=== PATIENT | male | born 1995 | race Caucasian/White ===

== ENCOUNTER 2024-03-05 08:53 | Inpatient (IN) | payer MEDICAID, OTHER ==
[2024-03-05] VITALS (22 sets, daily range): BP systolic 142–183; BP diastolic 88–116; TEMP 98.4–98.6; O2SAT 92–97
[~2024-03-05] VITALS: Ht 188 cm; Wt 107.0 kg
[2024-03-05] MEDS: ONDANSETRON HCL/PF - ER 4 MG/2 ML VIAL IV ONE (09:30)
[2024-03-05] MEDS: PANTOPRAZOLE 80 MG in IV NS 0.9% 100 ML IV ONE (09:30)
[2024-03-05] MEDS ORDERED: ONDANSETRON HCL/PF 4 MG/2 ML VIAL ONE (09:34)
[2024-03-05] MEDS ORDERED: LORAZEPAM INJ 2 MG/ML VIAL ONE (09:35)
[2024-03-05 09:39] LABS: BASOPHILS % (AUTO) 0.4 % (0.0-2.0); EOSINOPHILS % (AUTO) 0.1 % (0.0-6.0); HEMATOCRIT 51 % (39-51); LYMPHOCYTES # (AUTO) 0.6 K/uL (0.8-4.8); LYMPHOCYTES % (AUTO) 6.6 % (20.0-44.0); MEAN CORPUSCULAR HEMOGLOBIN 36 PG (26.0-33.0); MEAN CORPUSCULAR HGB CONC 34 g/dl (31.0-36.0); MEAN CORPUSCULAR VOLUME 107 fL (80-96); MONOCYTES # (AUTO) 0.5 K/uL (0.1-1.30); MONOCYTES % (AUTO) 5.6 % (2.0-12.0); NEUTROPHILS # (AUTO) 7.4 K/uL (1.8-8.9); NEUTROPHILS % (AUTO) 87.3 % (43.0-81.0); PLATELET COUNT (AUTO) 127 K/uL (150-450); RED BLOOD CELL COUNT(AUTO) 4.76 MIL/uL (4.5-6.0); RED CELL DISTRIBUTION WIDTH 15.4 % (11.5-15.0); WHITE BLOOD COUNT (AUTO) 8.5 K/uL (4.3-11.0)
[2024-03-05] MEDS: IV NS 0.9% 1,000 ML BAG IV ONE (09:42)
[2024-03-05] MEDS: LORAZEPAM INJ 2 MG/ML VIAL IV ONE ×2 (09:43→11:21)
[2024-03-05] MEDS ORDERED: PANT40TA49 PO (09:44)
[2024-03-05] MEDS ORDERED: LEVE500T20 PO (09:44)
[2024-03-05] MEDS ORDERED: ONDA4TAB11 PO (09:44)
[2024-03-05] MEDS: OCTREOTIDE 1,250 MCG in IV NS 0.9% 250 ML IV ONE (09:45)
[2024-03-05] MEDS: PANTOPRAZOLE 80 MG in IV NS 0.9% 500 ML IV ONE (09:45)
[2024-03-05] MEDS: OCTREOTIDE 50 MCG/ML AMPUL IV ONE (09:45)
[2024-03-05 09:49] LABS: INR 0.99 (0.91-1.10); PARTIAL THROMBOPLASTIN TIME 25.1 SEC (24.3-34.3); PROTHROMBIN TIME 10.5 SECS (9.2-11.1)
[2024-03-05] MEDS ORDERED: PANTOPRAZOLE 80 MG in IV NS 0.9% 500 ML IV SCH (10:00)
[2024-03-05] MEDS ORDERED: OCTREOTIDE 500 MCG in IV NS 0.9% 99 ML IV PRN (10:00)
[2024-03-05] MEDS ORDERED: ACETAMINOPHEN 325 MG TABLET PO PRN (10:00)
[2024-03-05] MEDS ORDERED: Z GUARD REMEDY 4 OZ OINT TP PRN (10:00)
[2024-03-05] MEDS ORDERED: MAG HYDROX/AL HYDROX/SIMETH 30 ML UDC PO PRN (10:00)
[2024-03-05] MEDS ORDERED: MAGNESIUM HYDROXIDE 30 ML UDC PO PRN (10:00)
[2024-03-05 10:03] LABS: CALCIUM, SERUM 9.9 mg/dL (8.5-10.1); CARBON DIOXIDE 13 mmol/L (21-32); CHLORIDE 91 mmol/L (98-107); CREATININE 1.2 mg/dL (0.6-1.3); GLUCOSE 146 mg/dL (74-106); POTASSIUM 4.5 mmol/L (3.5-5.1); SODIUM SERUM 141 mmol/L (136-145); UREA NITROGEN, BLOOD 10 mg/dL (7-18)
[2024-03-05 10:14] LABS: ALANINE AMINOTRANSFERASE 150 U/L (12-78); ALBUMIN 4.9 g/dL (3.4-5.0); ALKALINE PHOSPHATASE 108 U/L (46-116); ASPARTATE AMINOTRANSFERASE 281 U/L (15-37); BILIRUBIN,TOTAL 1.8 mg/dL (0.2-1.0); TOTAL PROTEIN, SERUM 9.9 g/dL (6.4-8.2)
[2024-03-05] MEDS: PIPERACILLIN /TAZOBACTAM 3.375 G in IV D5W 50 ML IV ONE (11:00)
[2024-03-05] MEDS ORDERED: PIPERACI/TAZO 3.375GM/D5W 50ML PB IV ONE (11:08)
[2024-03-05 11:20] LABS: ACETAMINOPHEN <10 ug/ml (10-30); SALICYLATE 1.6 mg/dL (2.8-20.0)
[2024-03-05] MEDS: ONDANSETRON HCL/PF 4 MG/2 ML VIAL IV ONE (11:21)
[2024-03-05 11:22] LABS: ABG BASE EXCESS -10.9 mmol/L (-2.0-3.0); ABG OXYGEN SATURATION 82.2 % (94.0-98.0); ABG PCO2 30.8 mmHg (35.0-48.0); ABG PH 7.283 (7.350-7.450); ABG PO2 52.4 mmHg (83.0-108.0); ABG TOTAL HEMOGLOBIN 17.5 G/dL (13.5-17.5); COHb 1.2 % (0.5-1.5); MetHb 0.4 % (0.0-1.5); O2Hb 80.9 % (94.0-97.0); SITE, ABG VBG - N/A
[2024-03-05 11:33] LABS: LACTIC ACID 9.3 mmol/L (0.4-2.0)
[2024-03-05] MEDS: IV D5/0.45 NACL 1,000 ML IV PRN (11:53)
[2024-03-05] MEDS: PANTOPRAZOLE 80 MG in IV NS 0.9% 500 ML IV SCH (12:12)
[2024-03-05] MEDS: OCTREOTIDE 1,250 MCG in IV NS 0.9% 247.5 ML IV PRN (12:12)
[2024-03-05] MEDS ORDERED: Sodium Bicarbonate 50 MEQ in IV NS 0.9% 1,000 ML IV SCH (13:30)
[2024-03-05] MEDS: LORAZEPAM INJ 2 MG/ML VIAL IV PRN (13:30)
[2024-03-05] MEDS: ONDANSETRON HCL/PF 4 MG/2 ML VIAL IVP PRN (13:31)
[2024-03-05] MEDS: NICOTINE PATCH (14MG) 14 MG PATCH.TD24 TD SCH (13:43)
[2024-03-05] MEDS: Sodium Bicarbonate 50 MEQ in IV NS 0.9% 1,000 ML IV SCH (14:26)
[2024-03-05] MEDS: LEVETIRACETAM (250 MG) 250 MG TABLET PO SCH (16:11)
[2024-03-05] MEDS: CHLORDIAZEPOXIDE HCL 25 MG CAPSULE PO SCH (16:11)
[2024-03-05] MEDS: hydrALAZINE HCL IV 20 MG VIAL IV PRN (16:59)
[2024-03-05] MEDS: SUCRALFATE 1 G/10 ML UDC PO SCH (17:04)
[2024-03-05] MEDS ORDERED: IV D5/0.45 NACL 1,000 ML IV PRN (20:30)
[2024-03-05] MEDS: METOPROLOL TARTRATE INJ 5 MG/5 ML AMPUL IVP ONE (23:15)
[2024-03-06] VITALS (27 sets, daily range): BP systolic 111–164; BP diastolic 35–122; TEMP 98.5–98.8; O2SAT 91–97
[2024-03-06] MEDS: ZOLPIDEM TARTRATE 5 MG TABLET PO PRN (00:27)
[2024-03-06 04:01] LABS: BASOPHILS % (AUTO) 0.1 % (0.0-2.0); HEMATOCRIT 41 % (39-51); HEMOGLOBIN 13.9 g/dL (13.5-17.5); LYMPHOCYTES # (AUTO) 0.6 K/uL (0.8-4.8); LYMPHOCYTES % (AUTO) 9.6 % (20.0-44.0); MEAN CORPUSCULAR HEMOGLOBIN 36 PG (26.0-33.0); MEAN CORPUSCULAR HGB CONC 34 g/dl (31.0-36.0); MEAN CORPUSCULAR VOLUME 106 fL (80-96); MONOCYTES # (AUTO) 0.5 K/uL (0.1-1.30); MONOCYTES % (AUTO) 8.2 % (2.0-12.0); NEUTROPHILS # (AUTO) 4.9 K/uL (1.8-8.9); NEUTROPHILS % (AUTO) 82.1 % (43.0-81.0); PLATELET COUNT (AUTO) 66 K/uL (150-450); RED BLOOD CELL COUNT(AUTO) 3.87 MIL/uL (4.5-6.0); RED CELL DISTRIBUTION WIDTH 14.9 % (11.5-15.0)
[2024-03-06 04:14] LABS: CALCIUM, SERUM 8.8 mg/dL (8.5-10.1); POTASSIUM 4.1 mmol/L (3.5-5.1)
[2024-03-06 04:20] LABS: ALBUMIN 3.6 g/dL (3.4-5.0); BILIRUBIN,DIRECT 0.9 mg/dL (0.0-0.2); MAGNESIUM 1.6 mg/dL (1.8-2.4); PHOSPHORUS 1.1 mg/dL (2.5-4.9); TOTAL PROTEIN, SERUM 7.1 g/dL (6.4-8.2)
[2024-03-06 05:46] LABS: BASOPHILS % (MANUAL) 0 % (0.0-2.0); EOSINOPHILS % (MANUAL) 0 % (0-4); LYMPHOCYTES % (MANUAL) 11 % (16-48); MONOCYTES % (MANUAL) 5 % (0-11.0); NEUTROPHILS % (MANUAL) 84 (42-76)
[2024-03-06 05:47] LABS: PLATELET ESTIMATE DECREASED; STOMATOCYTES 1+
[2024-03-06] MEDS: MAGNESIUM OXIDE 400 MG TABLET PO ONE (10:59)
[2024-03-06] MEDS: METOPROLOL TARTRATE 25 MG TABLET PO SCH ×2 (10:59→20:39)
[2024-03-06] MEDS: Sodium Bicarbonate 50 MEQ in IV NS 0.9% 1,000 ML IV SCH (12:05)
[2024-03-06 12:35] LABS: HEMOGLOBIN 14.4 g/dL (13.5-17.5)
[2024-03-06] MEDS: IV D5/ 0.9% NACL 1,000 ML IV PRN (15:40)
[2024-03-06] MEDS: CLONIDINE HCL 0.1 MG TABLET PO PRN (17:29)
[2024-03-06] MEDS: K PHOS NEUTRAL 250 MG TABLET PO SCH (18:49)
[2024-03-07] VITALS (10 sets, daily range): BP systolic 142–154; BP diastolic 86–106; TEMP 98.5–98.6; O2SAT 92–95
[2024-03-07 04:28] LABS: BASOPHILS % (AUTO) 0.5 % (0.0-2.0); EOSINOPHILS % (AUTO) 1.1 % (0.0-6.0); HEMATOCRIT 36 % (39-51); HEMOGLOBIN 12.6 g/dL (13.5-17.5); LYMPHOCYTES % (AUTO) 23.3 % (20.0-44.0); MEAN CORPUSCULAR HEMOGLOBIN 36 PG (26.0-33.0); MEAN CORPUSCULAR HGB CONC 35 g/dl (31.0-36.0); MEAN CORPUSCULAR VOLUME 105 fL (80-96); MONOCYTES # (AUTO) 0.3 K/uL (0.1-1.30); MONOCYTES % (AUTO) 8.1 % (2.0-12.0); NEUTROPHILS # (AUTO) 2.9 K/uL (1.8-8.9); RED BLOOD CELL COUNT(AUTO) 3.49 MIL/uL (4.5-6.0); RED CELL DISTRIBUTION WIDTH 14.6 % (11.5-15.0); WHITE BLOOD COUNT (AUTO) 4.3 K/uL (4.3-11.0)
[2024-03-07 04:40] LABS: PLATELET COUNT (AUTO) 46 K/uL (150-450)
[2024-03-07 04:49] LABS: CALCIUM, SERUM 8.2 mg/dL (8.5-10.1); CREATININE 0.7 mg/dL (0.6-1.3); MAGNESIUM 1.6 mg/dL (1.8-2.4); PHOSPHORUS 1.5 mg/dL (2.5-4.9)
[2024-03-07 04:50] LABS: ALBUMIN 3.2 g/dL (3.4-5.0); BILIRUBIN,DIRECT 0.6 mg/dL (0.0-0.2); BILIRUBIN,TOTAL 1.5 mg/dL (0.2-1.0); TOTAL PROTEIN, SERUM 6.3 g/dL (6.4-8.2)
[2024-03-07 06:13] LABS: EOSINOPHILS % (MANUAL) 2 % (0-4); LYMPHOCYTES % (MANUAL) 18 % (16-48); MONOCYTES % (MANUAL) 2 % (0-11.0); NEUTROPHILS % (MANUAL) 78 (42-76); PLATELET ESTIMATE DECREASED
[2024-03-07] MEDS: POTASSIUM CHLORIDE 20 MEQ TAB.PRT.SR PO SCH (09:30)
[2024-03-07] MEDS: MAGNESIUM OXIDE 400 MG TABLET PO ONE (10:04)
== END 2024-03-07 09:56 | disposition left against medical advice (07) | DRG 253 ==
LOC: ER 08:55 → ICU 11:18
PROVIDERS: ADMIT Student in an Organized Health Care Education/Training Program; ATTEND Student in an Organized Health Care Education/Training Program
DX: K92.2 Gastrointestinal hemorrhage, unspecified (principal); E87.20 Acidosis, unspecified; D69.59 Other secondary thrombocytopenia; F10.139 Alcohol abuse with withdrawal, unspecified; F17.210 Nicotine dependence, cigarettes, uncomplicated; F84.0 Autistic disorder; I10 Essential (primary) hypertension; F41.9 Anxiety disorder, unspecified; R74.01 Elevation of levels of liver transaminase levels; K29.70 Gastritis, unspecified, without bleeding; K20.90 Esophagitis, unspecified without bleeding; Z53.29 Procedure and treatment not carried out because of patient's decision for other reasons; Y90.6 Blood alcohol level of 120-199 mg/100 ml
CPT/HCPCS: 36415; 71045-TC; 80048-TC; 80076-TC; 82010-TC; 82803-TC; 83605-TC; 83735-TC; 84100-TC; 84484-TC; 85025-TC; 85027-TC; 85730-TC; 86850-TC; 87040-TC; G0378; G0480; J0360; J2060; J2354; J2405; J2470; J2543; J3490; J7030; J7040; J7042; J7050; J7060